=== PATIENT | male | born 1950 | race Caucasian/White ===

== ENCOUNTER 2016-11-11 19:00 | Emergency (ER) | payer BC ==
[2016-11-11 19:12] VITALS: BP 124/53; PULSE 105; TEMP 98.3; BMI 38.4
[2016-11-11] MEDS ORDERED: LIDOCAINE HCL 1%, 10 MG/ML (20ML VIAL) ONE (20:36)
[2016-11-11] MEDS ORDERED: CEPHALEXIN MONOHYDRATE 500 MG CAPSULE (UD) PO ONE (21:04)
--- NOTE | 2016-11-11 21:06 | PDOC ---
History of Present Illness - General History Source: Patient Exam Limitations: No Limitations - History of Present Illness Initial Comments: 11/11/16 21:07 The patient is a 66 year old male, with a significant past medical history of atrial fibrillation (on coumadin), who presents to the emergency department with a left mooney laceration secondary to cutting his leg on the hard plastic edge of a crate. The patient reports that the area was heavily bleeding and he was able to stop the bleeding by using pressure and duct taping the affected area. He denies any other bodily pain or injury. Allergies: Shellfish Social history: Former smoker (quit in 2003) PCP: Dr. Gordon Napoles <Vashti Castelan - Last Filed: 11/11/16 21:07> <Yin Judd - Last Filed: 11/12/16 02:00> - General Chief Complaint: Injury Stated Complaint: LEFT MOONEY LACERATION Time Seen by Provider: 11/11/16 19:14 Past History <Vashti Castelan - Last Filed: 11/11/16 21:07> - Past Medical History Anemia: No Asthma: Yes Cancer: No Cardiac Disorders: Yes (A FIB) CVA: No COPD: No CHF: No Dementia: No Diabetes: No GI Disorders: No Disorders: No HTN: No Hypercholesterolemia: Yes Liver Disease: No Seizures: No Thyroid Disease: No - Surgical History Abdominal Surgery: No Appendectomy: No Cardiac Surgery: No Cholecystectomy: No Lung Surgery: No Neurologic Surgery: No Orthopedic Surgery: No - Psycho/Social/Smoking Cessation Hx Anxiety: No Suicidal Ideation: No Smoking History: Former smoker Have you smoked in the past 12 months: No If you are a former smoker, when did you quit?: 2003 Information on smoking cessation initiated: No Hx Alcohol Use: Yes Drug/Substance Use Hx: No Substance Use Type: Alcohol Hx Substance Use Treatment: No <Yin Judd - Last Filed: 11/12/16 02:00> - Past Medical History Allergies/Adverse Reactions: Allergies Allergy/AdvReac Type Severity Reaction Status Date / Time shellfish derived Allergy Hives Verified 11/11/16 19:05 Home Medications: Ambulatory Orders Atorvastatin Ca [Lipitor] 10 mg PO DAILY 02/02/14 Digoxin [Lanoxin -] 0.25 mg PO DAILY 02/02/14 Hydrocodone Bit/Acetaminophen [Vicodin Es 7.5-300mg -] 1 tab PO Q6H PRN Metoprolol Succinate [Toprol XL -] 50 mg PO DAILY 02/02/14 Warfarin Sodium [Coumadin] 6 mg PO DAILY 02/02/14 Cephalexin Monohydrate [Keflex -] 500 mg PO Q6H #12 capsule 11/11/16 Review of Systems - Review of Systems Able to Perform ROS?: Yes Comments:: 11/11/16 21:08 CONSTITUTIONAL: Absent: fever, no chills, no fatigue EYES: Absent: visual changes ENT: Absent: ear pain, no sore throat CARDIOVASCULAR: Absent: chest pain, no palpitations RESPIRATORY: Absent: cough, no SOB GI: Absent: abdominal pain, no nausea, no vomiting, no constipation, no diarrhea GENITOURINARY: Absent: dysuria, no frequency, no hematuria MUSCULOSKELETAL: Absent: back pain, no arthralgia, no myalgia SKIN:+left skin tear Absent: rash <Vashti Castelan - Last Filed: 11/11/16 21:07> *Physical Exam - Vital Signs Last Vital Signs Temp Pulse Resp BP Pulse Ox 98.3 F 105 H 20 124/53 99 11/11/16 19:03 11/11/16 19:03 11/11/16 19:03 11/11/16 19:03 11/11/16 19:03 - Physical Exam Comments: 11/11/16 21:08 GENERAL: The patient is awake, alert, and fully oriented, in no acute distress. HEAD: Normal with no signs of trauma. EYES: Pupils equal, round and reactive to light, extraocular movements intact, sclera anicteric, conjunctiva clear with no pallor. ENT: Ears normal, nares patent, oropharynx clear without exudates. Moist mucous membranes. NECK: Normal range of motion, supple without lymphadenopathy, JVD, or masses. LUNGS: Breath sounds equal, clear to auscultation bilaterally. No wheeze/ crackles. HEART: Regular rate and rhythm, normal S1 and S2 without murmur or rub. ABDOMEN: Soft/nontender/nondistended. BS wnl. No guarding or rebound. No palpable masses. No hepatosplenomegaly. EXTREMITIES: Normal range of motion, no edema. No clubbing or cyanosis. No cords, erythema, or tenderness. NEUROLOGICAL: Cranial nerves II through XII grossly intact. Normal speech, normal gait. PSYCH: Normal mood, normal affect. SKIN: + 4 cm curvilinear skin tear of the lateral aspect of the lower 3rd of left mooney, actively bleeding capillary in the medial aspect of the wound. Warm, Dry, normal turgor, no rashes <Vashti Castelan - Last Filed: 11/11/16 21:07> - Vital Signs Last Vital Signs Temp Pulse Resp BP Pulse Ox 98.3 F 105 H 20 124/53 99 11/11/16 19:03 11/11/16 19:03 11/11/16 19:03 11/11/16 19:03 11/11/16 19:03 <Yin Judd - Last Filed: 11/12/16 02:00> Procedures - Laceration/Wound Repair Left Lower Lateral Leg Wound Length: 2.6 to 5.0 cm Wound Explored: clean Wound's Depth, Shape: flap Irrigated w/ Saline: Yes Betadine Prep: No (hibiclens/ethanol) Anesthesia: 2% Lidocaine w/ Epi Amount of Anesthetic (ccs): 1 Wound Repaired With: Dermabond Sterile Dressing Applied: Yes Splint Applied: No Sling Applied: No Progress: Area around 4 cm curvilinear skin tear prepped using Hibiclens/ethanol. 1 mL of 2% lidocaine with epinephrine injected into the area around actively bleeding capillary. Suture ligation of the bleeding blood vessel performed using transfixion suture of 5-0 Vicryl. Good hemostasis achieved. Skin flap cleansed using sterile normal saline and closed using Dermabond around the edges of the skin tear. Telfa pad plus sterile gauze plus Trev wrap applied to the wound. Patient tolerated procedure well <Yin Judd - Last Filed: 11/12/16 02:00> Progress Note - Progress Note Progress Note: Documentation has been prepared under my direction and personally reviewed by me in its entirety. I attest that this documented accurately reflects all work, treatment, procedures and medical decision making performed by me. <Yin Judd - Last Filed: 11/12/16 02:00> Medical Decision Making - Medical Decision Making As noted above, this 66-year-old man with a history of atrial fibrillation/ venous-stasis/probable peripheral vascular disease presented with skin tear of the left lower leg. Repair of the wound as noted above. Patient will keep the left leg elevated as much as possible with the original dressing in place for 2 days. Because the patient has a history of peripheral vascular disease and wound is in the lower extremity, Keflex 500 mg 4 times a day for 3 days will be prescribed with the first dose given here in the emergency room. Patient will plan to see his PMD, Dr. Napoles within the next 3 days for wound check. Meanwhile, if he notices increase in pain/swelling/redness in the wound prior to the wound check, he should return here. <iYn Judd - Last Filed: 11/12/16 02:00> *DC/Admit/Observation/Transfer - Attestations Scribe Attestion: 11/11/16 21:09 Documentation prepared by YOSHI Rivera, acting as medical center director for Yin Judd MD. <Vashti Castelan - Last Filed: 11/11/16 21:07> <Yin Judd - Last Filed: 11/12/16 02:00> Diagnosis at time of Disposition: Skin tear of left lower leg without complication Qualifiers: Encounter type: initial encounter Qualified Code(s): S81.812A - Laceration without foreign body, left lower leg, initial encounter - Discharge Dispostion Disposition: HOME Condition at time of disposition: Good - Prescriptions Prescriptions: Cephalexin Monohydrate [Keflex -] 500 mg PO Q6H #12 capsule - Referrals Referrals: Gordon Napoles MD [Primary Care Provider] - 3 days - Patient Instructions Printed Discharge Instructions: DI for Laceration Repair With Dermabond Additional Instructions: keep original dressing in place for 2 days keep left leg elevated tonight after 2 days , remove original dressing;replace with telfa/gauze wrap keflex 500mg 4 times a day for [address] Napoles for wound check within 3-4 days return to ER if area is more painful/swollen/red
[2016-11-11] MEDS ORDERED: CEPHALEXIN MONOHYDRATE 500 MG CAPSULE (UD) ONE (21:16)
== END 2016-11-11 21:20 | disposition home or self-care (01) ==
LOC: FER 19:00
PROC: 0HQLXZZ Repair Left Lower Leg Skin, External Approach (ICD-10-PCS; principal; 2016-11-11)
DX: S81.812A Laceration without foreign body, left lower leg, initial encounter (principal); W22.8XXA Striking against or struck by other objects, initial encounter; Y93.9 Activity, unspecified; Y92.9 Unspecified place or not applicable; I48.91 Unspecified atrial fibrillation; Z79.01 Long term (current) use of anticoagulants; Z87.891 Personal history of nicotine dependence; J45.909 Unspecified asthma, uncomplicated; E78.00 Pure hypercholesterolemia, unspecified
CPT/HCPCS: 99281-25

== ENCOUNTER 2020-08-24 08:34 | Emergency (ER) | payer BC ==
[2020-08-24 09:05] VITALS: TEMP 97; BMI 36.2
[2020-08-24 10:22] LABS: BASO % 0.4 % (0-2.0); HEMATOCRIT 35.7 % (35.4-49); HEMOGLOBIN 12.1 GM/dL (11.7-16.9); LYMPH % 12.6 % (8-40); MCH 28.1 pg (25.7-33.7); MCHC 33.8 g/dl (32.0-35.9); MEAN CELL VOLUME 83.3 fl (80-96); MEAN PLT VOLUME 7.3 fl (7.5-11.1); MONO % 5.1 % (3.8-10.2); NEUT % 79.9 % (42.8-82.8); PLATELET COUNT 209 K/MM3 (134-434); RBC 4.29 M/mm3 (4.00-5.60); RDW 14.1 % (11.9-15.9)
[2020-08-24 10:29] LABS: INR 2.01 (0.83-1.09); PROTHROMBIN TIME (PATIENT) 23.8 SEC (9.7-13.0)
[2020-08-24 10:32] LABS: ACTIVATED PTT 29.8 SECONDS (25.2-36.5)
[2020-08-24 10:39] VITALS: BP 110/55; PULSE 61
== END 2020-08-24 11:30 | disposition home or self-care (01) ==
LOC: JER 08:34
DX: S81.812A Laceration without foreign body, left lower leg, initial encounter (principal)
CPT/HCPCS: 36415; 85025; 85610; 85730; 99283-25

== ENCOUNTER 2022-09-25 15:12 | Inpatient (IN) | payer OTHER, MEDICARE ==
[2022-09-25] MEDS ORDERED: PANTOPRAZOLE SODIUM 40 MG VIAL IVPUSH ONE (15:42)
[2022-09-25] MEDS ORDERED: PANTOPRAZOLE SODIUM 40 MG VIAL ONE (17:07)
[2022-09-25 17:29] LABS: HEMATOCRIT 26.7 % (35.4-49); MCH 27.2 pg (25.7-33.7); MCHC 33.8 g/dl (32.0-35.9); MEAN CELL VOLUME 80.3 fl (80-96); PLATELET COUNT 256.9 10^3/uL (134-434); RBC 3.32 10^6/uL (4.00-5.60); RDW 20.9 % (11.9-15.9); WHITE BLOOD COUNT 7.1 10^3/uL (4.0-10.8)
[2022-09-25 17:38] LABS: ALBUMIN 3.4 g/dl (3.4-5.0); BILIRUBIN,TOTAL 1.4 mg/dl (0.2-1); CALCIUM 8.8 mg/dl (8.5-10); CREATININE 1.7 mg/dl (0.55-1.3); TOT PROT 6.3 g/dl (6.4-8.2)
[2022-09-25 18:24] LABS: PLATELET ESTIMATE ADEQUATE
[2022-09-25] MEDS ORDERED: SODIUM CHLORIDE 0.9% 1000 ML INFUS.BAG IV ONE (18:30)
[2022-09-25 18:47] LABS: PROTHROMBIN TIME (PATIENT) 59.6 SEC (9.7-13.0)
[2022-09-25 19:06] LABS: INR 5.1 (0.83-1.09)
[2022-09-25 19:33] LABS: N-TERMINAL BNP 490.5 pg/ml (5-125)
[2022-09-26 01:26] VITALS: BMI 38.5
[2022-09-26 08:36] LABS: INR 5.57 (0.83-1.09); PROTHROMBIN TIME (PATIENT) 65.2 SEC (9.7-13.0)
[2022-09-26 08:38] LABS: ACTIVATED PTT 47.1 SECONDS (25.2-36.5)
[2022-09-26 08:42] LABS: HEMATOCRIT 23.1 % (35.4-49); HEMOGLOBIN 7.6 G/dL (11.7-16.9); MCH 26.6 pg (25.7-33.7); MCHC 32.8 g/dl (32.0-35.9); PLATELET COUNT 228.1 10^3/uL (134-434); RBC 2.85 10^6/uL (4.00-5.60); RDW 21.3 % (11.9-15.9); WHITE BLOOD COUNT 6.4 10^3/uL (4.0-10.8)
[2022-09-26 08:44] LABS: CALCIUM 8.2 mg/dl (8.5-10); CREATININE 1.5 mg/dl (0.55-1.3); MAGNESIUM 2.1 mg/dL (1.8-2.4); PHOSPHOROUS 2.9 mg/dl (2.5-4.9)
[2022-09-26] MEDS ORDERED: DIGOXIN 0.25 MG TABLET PO SCH (10:15)
[2022-09-26] MEDS ORDERED: DIGOXIN 0.125 MG TABLET PO SCH (10:56)
[2022-09-26] MEDS: GABAPENTIN 300 MG CAPSULE PO SCH ×2 (11:35→22:14)
[2022-09-26] MEDS: ATORVASTATIN CA 10 MG TABLET (FP) PO SCH (22:14)
[2022-09-26] MEDS: PANTOPRAZOLE SODIUM 40 MG VIAL IVPUSH SCH (22:14)
[2022-09-26] MEDS ORDERED: ACETAMINOPHEN 325 MG TABLET (FP) PO PRN (22:16)
[2022-09-27 08:00] LABS: CALCIUM 8.3 mg/dl (8.5-10); CREATININE 1.5 mg/dl (0.55-1.3)
[2022-09-27] MEDS ORDERED: POTASSIUM CHLORIDE TABS 20 MEQ TABLET.ER (FP) PO ONE (09:00)
[2022-09-27] MEDS: GABAPENTIN 300 MG CAPSULE PO SCH ×2 (09:36→22:10)
[2022-09-27 09:37] LABS: BASO % 0.8 % (0-2.0); EOS % 3.7 % (0-4.5); HEMATOCRIT 23.4 % (35.4-49); HEMOGLOBIN 7.5 GM/dL (11.7-16.9); LYMPH % 20.3 % (8-40); MCH 25.9 pg (25.7-33.7); MCHC 32.2 g/dl (32.0-35.9); MEAN CELL VOLUME 80.4 fl (80-96); MEAN PLT VOLUME 6.8 fl (7.5-11.1); MONO % 8.3 % (3.8-10.2); NEUT % 66.9 % (42.8-82.8); PLATELET COUNT 249 10^3/uL (134-434); RBC 2.91 M/mm3 (4.00-5.60); RDW 22.8 % (11.9-15.9); WHITE BLOOD COUNT 5.8 K/mm3 (4.0-10.0)
[2022-09-27] MEDS: PANTOPRAZOLE SODIUM 40 MG VIAL IVPUSH SCH ×2 (09:39→22:10)
[2022-09-27] MEDS ORDERED: IRON SUCROSE INJECTION 200 MG in SODIUM CHLORIDE 100 ML IVPB ONE (10:20)
[2022-09-27 10:31] LABS: INR 5.51 (0.83-1.09); PROTHROMBIN TIME (PATIENT) 64.5 SEC (9.7-13.0)
[2022-09-27 10:52] LABS: ANISOCYTOSIS 3+; MACROCYTOSIS 0; OVALOCYTE 1+
[2022-09-27] MEDS: ATORVASTATIN CA 10 MG TABLET (FP) PO SCH (22:10)
[2022-09-28 07:47] LABS: INR 4.27 (0.83-1.09); PROTHROMBIN TIME (PATIENT) 49.8 SEC (9.7-13.0)
[2022-09-28 08:00] LABS: CALCIUM 8.3 mg/dl (8.5-10); CREATININE 1.4 mg/dl (0.55-1.3); PHOSPHOROUS 2.4 mg/dl (2.5-4.9)
[2022-09-28] MEDS ORDERED: POTASSIUM CHLORIDE TABS 20 MEQ TABLET.ER (FP) PO ONE (08:30)
[2022-09-28] MEDS ORDERED: POTASSIUM PHOSPHATE 15 MM in SODIUM CHLORIDE 250 ML IVPB ONE (08:30)
[2022-09-28] MEDS: GABAPENTIN 300 MG CAPSULE PO SCH ×2 (09:07→21:15)
[2022-09-28] MEDS: PANTOPRAZOLE SODIUM 40 MG VIAL IVPUSH SCH ×2 (09:09→21:15)
[2022-09-28] MEDS ORDERED: SODIUM CHLORIDE 0.9% 500 ML INFUS.BAG IV ONE (09:43)
[2022-09-28 10:31] LABS: BASO % 0.5 % (0-2.0); EOS % 4.2 % (0-4.5); HEMATOCRIT 23.9 % (35.4-49); HEMOGLOBIN 7.7 GM/dL (11.7-16.9); LYMPH % 20.5 % (8-40); MCH 25.8 pg (25.7-33.7); MCHC 32.4 g/dl (32.0-35.9); MEAN CELL VOLUME 79.8 fl (80-96); MEAN PLT VOLUME 6.7 fl (7.5-11.1); MONO % 7.1 % (3.8-10.2); NEUT % 67.7 % (42.8-82.8); PLATELET COUNT 266 10^3/uL (134-434); RBC 2.99 M/mm3 (4.00-5.60); RDW 22.9 % (11.9-15.9); WHITE BLOOD COUNT 5.4 K/mm3 (4.0-10.0)
[2022-09-28] MEDS: ATORVASTATIN CA 10 MG TABLET (FP) PO SCH (21:15)
[2022-09-29 07:48] LABS: CALCIUM 8.2 mg/dl (8.5-10); CREATININE 1.3 mg/dl (0.55-1.3); INR 2.56 (0.83-1.09); PHOSPHOROUS 2.5 mg/dl (2.5-4.9); PROTHROMBIN TIME (PATIENT) 29.7 SEC (9.7-13.0)
[2022-09-29] MEDS: GABAPENTIN 300 MG CAPSULE PO SCH ×2 (09:58→21:59)
[2022-09-29] MEDS: PANTOPRAZOLE SODIUM 40 MG VIAL IVPUSH SCH ×2 (09:58→22:01)
[2022-09-29 11:16] LABS: BASO % 0.5 % (0-2.0); EOS % 4.5 % (0-4.5); HEMATOCRIT 23.7 % (35.4-49); HEMOGLOBIN 7.7 GM/dL (11.7-16.9); LYMPH % 22.8 % (8-40); MCHC 32.5 g/dl (32.0-35.9); MEAN PLT VOLUME 6.8 fl (7.5-11.1); MONO % 7.1 % (3.8-10.2); NEUT % 65.1 % (42.8-82.8); PLATELET COUNT 255 10^3/uL (134-434); RBC 2.97 M/mm3 (4.00-5.60); RDW 23.1 % (11.9-15.9); WHITE BLOOD COUNT 5.7 K/mm3 (4.0-10.0)
[2022-09-29] MEDS ORDERED: SODIUM CHLORIDE 0.9% 500 ML INFUS.BAG IV ONE (17:33)
[2022-09-29] MEDS: ATORVASTATIN CA 10 MG TABLET (FP) PO SCH (21:59)
[2022-09-30] MEDS ORDERED: GABAPENTIN 300 MG CAPSULE PO SCH (08:42)
[2022-09-30 09:15] LABS: INR 2.02 (0.83-1.09); PROTHROMBIN TIME (PATIENT) 23.4 SEC (9.7-13.0)
[2022-09-30 09:25] LABS: CALCIUM 8.1 mg/dl (8.5-10); CREATININE 1.3 mg/dl (0.55-1.3); PHOSPHOROUS 3.2 mg/dl (2.5-4.9)
[2022-09-30] MEDS: FERROUS SO4 325 MG TABLET (FP) PO SCH (10:04)
[2022-09-30] MEDS: PANTOPRAZOLE SODIUM 40 MG VIAL IVPUSH SCH (10:04)
[2022-09-30] MEDS: POLYETHYLENE GLYCOL (HEALTHYLAX) 3350 17 GM PACKET PO SCH (10:07)
[2022-09-30] MEDS ORDERED: SODIUM CHLORIDE 0.9% 500 ML INFUS.BAG IV ONE (11:03)
[2022-09-30] MEDS ORDERED: SODIUM CHLORIDE 1,000 ML IV SCH (11:15)
[2022-09-30 11:24] LABS: BASO % 0.7 % (0-2.0); HEMATOCRIT 23.1 % (35.4-49); HEMOGLOBIN 7.4 GM/dL (11.7-16.9); LYMPH % 21.9 % (8-40); MCHC 32.1 g/dl (32.0-35.9); MEAN CELL VOLUME 81.1 fl (80-96); MEAN PLT VOLUME 6.8 fl (7.5-11.1); MONO % 6.8 % (3.8-10.2); NEUT % 65.6 % (42.8-82.8); PLATELET COUNT 251 10^3/uL (134-434); RBC 2.84 M/mm3 (4.00-5.60); RDW 22.2 % (11.9-15.9); WHITE BLOOD COUNT 5.3 K/mm3 (4.0-10.0)
[2022-09-30 18:44] VITALS: RESP 18
[2022-09-30] MEDS: ATORVASTATIN CA 10 MG TABLET (FP) PO SCH (21:39)
[2022-09-30] MEDS: GABAPENTIN 100 MG CAPSULE PO SCH (21:39)
[2022-10-01 09:17] LABS: INR 1.68 (0.83-1.09); PROTHROMBIN TIME (PATIENT) 19.4 SEC (9.7-13.0)
[2022-10-01 09:35] LABS: ALBUMIN 2.7 g/dl (3.4-5.0); BILIRUBIN,TOTAL 0.9 mg/dl (0.2-1); CALCIUM 8.3 mg/dl (8.5-10); CREATININE 1.3 mg/dl (0.55-1.3); MAGNESIUM 1.9 mg/dL (1.8-2.4); PHOSPHOROUS 2.7 mg/dl (2.5-4.9); TOT PROT 5.1 g/dl (6.4-8.2)
[2022-10-01] MEDS ORDERED: PANTOPRAZOLE 40 MG TABLET PO SCH (10:00)
[2022-10-01 10:08] LABS: HEMATOCRIT 25.3 % (35.4-49); HEMOGLOBIN 8.4 G/dL (11.7-16.9); MCH 27.3 pg (25.7-33.7); MEAN CELL VOLUME 82.7 fl (80-96); PLATELET COUNT 233.9 10^3/uL (134-434); RBC 3.06 10^6/uL (4.00-5.60); RDW 20.8 % (11.9-15.9); WHITE BLOOD COUNT 5.6 10^3/uL (4.0-10.8)
[2022-10-01] MEDS: POLYETHYLENE GLYCOL (HEALTHYLAX) 3350 17 GM PACKET PO SCH (11:17)
[2022-10-01] MEDS: FERROUS SO4 325 MG TABLET (FP) PO SCH (11:17)
[2022-10-01] MEDS: GABAPENTIN 100 MG CAPSULE PO SCH (11:17)
[2022-10-01 11:30] VITALS: TEMP 98.8
[2022-10-01 12:46] LABS: PLATELET ESTIMATE ADEQUATE
[2022-10-01 16:33] VITALS: BP 106/44; PULSE 53
[2022-10-01] MEDS ORDERED: RIVAROXABAN 20 MG TABLET PO SCH (18:00)
== END 2022-10-01 19:32 | disposition home or self-care (01) | DRG 813 ==
LOC: FER 15:12 → FM/S 20:38
PROVIDERS: ADMIT Internal Medicine; ATTEND Internal Medicine
DX: D68.32 Hemorrhagic disorder due to extrinsic circulating anticoagulants (principal); K92.2 Gastrointestinal hemorrhage, unspecified; N17.9 Acute kidney failure, unspecified; D62 Acute posthemorrhagic anemia; I48.91 Unspecified atrial fibrillation; R00.1 Bradycardia, unspecified; R29.6 Repeated falls; E78.5 Hyperlipidemia, unspecified; E80.6 Other disorders of bilirubin metabolism; E86.1 Hypovolemia; D64.9 Anemia, unspecified; I11.0 Hypertensive heart disease with heart failure; I50.9 Heart failure, unspecified; I95.1 Orthostatic hypotension; G62.9 Polyneuropathy, unspecified; Z79.01 Long term (current) use of anticoagulants
CPT/HCPCS: 36415; 36430; 70450-TC; 71045-TC-FY; 72125-TC; 80048; 80053; 80061; 80162; 82272; 82607; 82728; 82746; 83036; 83540; 83550; 83735; 83880; 84100; 84439; 84443; 84484; 85025; 85027; 85610; 85730; 86850; 86900; 86901; 86922; 93005; 93306-TC; 97116-GP; 97162-GP; 99285-25; C9803-CS; J1756; P9058; U0003; U0005

== ENCOUNTER 2024-08-14 18:59 | Inpatient (IN) | payer OTHER, MEDICARE ==
[2024-08-14 19:59] LABS: VENOUS O2 SATURATION 90.9 % (70-80); VENOUS PCO2 68.4 mmHg (38-52)
[2024-08-14 20:04] LABS: VENOUS PH 6.838 (7.310-7.410)
[2024-08-14 20:07] LABS: BASO % 0.3 % (0-2.0); EOS % 0.8 % (0-4.5); HEMATOCRIT 13.6 % (35.4-49); LYMPH % 14.9 % (8-40); MCH 26.5 pg (25.7-33.7); MCHC 30.4 g/dl (32.0-35.9); MEAN CELL VOLUME 87.3 fl (80-96); MEAN PLT VOLUME 7.9 fl (7.5-11.1); MONO % 9.6 % (3.8-10.2); NEUT % 74.4 % (42.8-82.8); PLATELET COUNT 212 10^3/uL (134-434); RBC 1.55 M/mm3 (4.00-5.60); RDW 16.2 % (11.9-15.9); WHITE BLOOD COUNT 10.2 K/mm3 (4.0-10.0)
[2024-08-14 20:14] LABS: CHLORIDE 97 mmol/L (98-107); POTASSIUM 4.9 mmol/L (3.5-5.1); SODIUM 131 mmol/L (136-145)
[2024-08-14 20:15] LABS: ALBUMIN 2.7 g/dl (3.4-5.0); ANION GAP 23 mmol/L (4-13); CALCIUM 8.9 mg/dL (8.5-10.1); CO2 12 mmol/L (21-32)
[2024-08-14 20:16] LABS: HEMOGLOBIN 4.1 GM/dL (11.7-16.9)
[2024-08-14 20:17] LABS: BLOOD UREA NITROGEN 53.1 mg/dL (7-18); GLUCOSE,RANDOM 136 mg/dL (74-106); MAGNESIUM 2.6 mg/dL (1.8-2.4)
[2024-08-14 20:19] LABS: CREATININE 3.8 mg/dL (0.55-1.3); SGOT/AST 292 U/L (15-37); SGPT/ALT 154 U/L (13-61)
[2024-08-14 20:21] LABS: BILIRUBIN,TOTAL 0.7 mg/dL (0.2-1); TOT PROT 4.7 g/dl (6.4-8.2)
[2024-08-14 20:22] LABS: ALK PHOS 75 U/L (45-117)
[2024-08-14] MEDS ORDERED: PROTAMINE SULFATE 50 MG/5 ML VIAL IVPUSH ONE (20:26)
[2024-08-14] MEDS ORDERED: DEXMEDETOMIDINE HCL 200 MCG/2 ML IVPB ONE ×3 (20:40→21:54)
[2024-08-14] MEDS: NOREPINEPHRINE 0.9 % NACL 8 MG/250 ML BAG IVPB SCH (22:13)
[2024-08-14] MEDS: EPINEPHrine 1:10,000 (P-F SYR) 1 MG/10 ML DISP.SYRIN IVPUSH ONE (22:13)
[2024-08-14] MEDS: SODIUM CHLORIDE 1,000 ML IV STA (22:13)
[2024-08-14] MEDS: DEXMEDETOMIDINE PREMIX 400 MCG/100 ML BAG IVPB SCH (22:14)
[2024-08-14] MEDS ORDERED: PIPERACILLIN/TAZOB 4.5 GM 4.5 GM/100 ML BAG IVPB ONE (22:19)
[2024-08-14] MEDS ORDERED: VANCOMYCIN 1 GM PREMIX (F) 1 GM/200 ML BAG ONE (22:35)
[2024-08-14] MEDS: VANCOMYCIN 1,000 MG in DEXTROSE 5%-WATER - 250 ML IVPB ONE (22:44)
[2024-08-14] MEDS: PIPERACILLIN/TAZOB 4.5 GM 4.5 GM in DEXTROSE 5%-WATER 100 ML IVPB ONE (22:44)
[2024-08-14] MEDS: PROTAMINE SULFATE 50 MG/5 ML VIAL IVPUSH ONE (23:03)
[2024-08-14] MEDS ORDERED: ROCURONIUM BROMIDE 50 MG/5 ML VIAL ONE (23:48)
[2024-08-14] MEDS ORDERED: MIDAZOLAM HCL 2 MG/2 ML SINGLE DOSE VIAL ONE (23:52)
[2024-08-15] MEDS: MIDAZOLAM HCL 2 MG/2 ML SINGLE DOSE VIAL IVPUSH ONE (01:24)
[2024-08-15] MEDS: ROCURONIUM BROMIDE 50 MG/5 ML VIAL IV ONE (01:24)
[2024-08-15] MEDS: SODIUM BICARBONATE 8.4% 50 MEQ/50 ML DISP.SYRIN IVPUSH ONE ×2 (01:25→02:54)
[2024-08-15] MEDS: PANTOPRAZOLE SODIUM 40 MG VIAL IVPUSH SCH (01:25)
[2024-08-15] MEDS ORDERED: VASopressin 20 UNITS/ML VIAL IV ONE (01:34)
[2024-08-15] MEDS: VASopressin 40 UNITS/100 ML BAG IV SCH (01:40)
[2024-08-15 01:47] LABS: HEMATOCRIT 18.5 % (35.4-49); MCH 27.8 pg (25.7-33.7); MCHC 31.9 g/dl (32.0-35.9); MEAN CELL VOLUME 87.2 fl (80-96); MEAN PLT VOLUME 7.3 fl (7.5-11.1); PLATELET COUNT 222 10^3/uL (134-434); RBC 2.12 M/mm3 (4.00-5.60); RDW 16.3 % (11.9-15.9); WHITE BLOOD COUNT 16.3 K/mm3 (4.0-10.0)
[2024-08-15 02:22] LABS: CALCIUM 7.9 mg/dL (8.5-10.1); HEMOGLOBIN 5.9 GM/dL (11.7-16.9)
[2024-08-15 02:23] LABS: ALBUMIN 2.5 g/dl (3.4-5.0); BLOOD UREA NITROGEN 53.4 mg/dL (7-18)
[2024-08-15 02:26] LABS: LACTIC ACID 11.8 mmol/L (0.4-2.0)
[2024-08-15 02:27] LABS: CREATININE 3.6 mg/dL (0.55-1.3)
[2024-08-15 02:29] LABS: TOT PROT 4.4 g/dl (6.4-8.2)
[2024-08-15 02:31] LABS: ARTERIAL BLD GAS O2 SATURATION 98.1 % (95-98); ARTERIAL BLOOD GAS BASE EXCESS -17.4 mmol/L (-2-2); ARTERIAL BLOOD GAS PO2 153.6 mmHg (80-100)
[2024-08-15 02:39] LABS: ARTERIAL BLOOD GAS pH 7.076 (7.350-7.450); INR 1.36 (0.83-1.09); PROTHROMBIN TIME (PATIENT) 15.5 SEC (9.7-13.0)
[2024-08-15 02:42] LABS: ACTIVATED PTT 51.3 SECONDS (25.2-36.5)
[2024-08-15 03:59] VITALS: BMI 38.7
[2024-08-15 05:41] LABS: BASO % 0.5 % (0-2.0); EOS % 0.2 % (0-4.5); HEMATOCRIT 23.1 % (35.4-49); HEMOGLOBIN 7.3 GM/dL (11.7-16.9); LYMPH % 6.2 % (8-40); MCH 26.3 pg (25.7-33.7); MCHC 31.7 g/dl (32.0-35.9); MEAN CELL VOLUME 83.2 fl (80-96); MONO % 2.9 % (3.8-10.2); NEUT % 90.2 % (42.8-82.8); PLATELET COUNT 154 10^3/uL (134-434); RBC 2.78 M/mm3 (4.00-5.60); RDW 18.4 % (11.9-15.9); WHITE BLOOD COUNT 16.3 K/mm3 (4.0-10.0)
[2024-08-15] MEDS: DEXMEDETOMIDINE PREMIX 400 MCG/100 ML BAG IVPB SCH (06:31)
[2024-08-15] MEDS: MIDAZOLAM HCL 2 MG/2 ML SINGLE DOSE VIAL IVPUSH PRN (06:34)
[2024-08-15 07:47] LABS: LACTIC ACID 7.9 mmol/L (0.4-2.0)
[2024-08-15 07:56] LABS: POTASSIUM 4.8 mmol/L (3.5-5.1)
[2024-08-15 07:58] LABS: ALBUMIN 2.9 g/dl (3.4-5.0); BLOOD UREA NITROGEN 53.4 mg/dL (7-18)
[2024-08-15 08:02] LABS: CREATININE 3.7 mg/dL (0.55-1.3)
[2024-08-15 08:03] LABS: BILIRUBIN,TOTAL 1.7 mg/dL (0.2-1)
[2024-08-15] MEDS: PIPERACILLIN/TAZOB 3.375 GM 50 ML IVPB ONE (09:25)
[2024-08-15] MEDS ORDERED: LORazepam 40 MG in DEXTROSE 5%-WATER - 230 ML IVPB SCH (09:30)
[2024-08-15 09:38] LABS: HEMATOCRIT 22.8 % (35.4-49); HEMOGLOBIN 7.4 GM/dL (11.7-16.9); MCH 26.5 pg (25.7-33.7); MCHC 32.6 g/dl (32.0-35.9); MEAN CELL VOLUME 81.3 fl (80-96); PLATELET COUNT 173 10^3/uL (134-434); RDW 18.4 % (11.9-15.9); WHITE BLOOD COUNT 19.4 K/mm3 (4.0-10.0)
[2024-08-15 09:48] LABS: INR 1.4 (0.83-1.09); PROTHROMBIN TIME (PATIENT) 15.9 SEC (9.7-13.0)
[2024-08-15] MEDS ORDERED: PIPERACILLIN/TAZOB 3.375 GM 3.375 GM in DEXTROSE 5%-WATER - 50 ML IVPB SCH (10:00)
[2024-08-15] MEDS: LORazepam 40 MG in DEXTROSE 5%-WATER - 230 ML IVPB SCH (10:02)
[2024-08-15] MEDS: LORazepam 2 MG/ML SDV VIAL IVPUSH ONE (10:04)
[2024-08-15] MEDS: MUPIROCIN 2% TOPICAL OINTMENT FOR DECOLONIZATION NS SCH (10:04)
[2024-08-15 10:38] LABS: ANISOCYTOSIS 1+; LACTIC ACID 7.2 mmol/L (0.4-2.0)
[2024-08-15] MEDS: MORPHINE 100mg/NS INFUSION 100 MG/100 ML MG IVPB SCH (11:37)
[2024-08-15] MEDS ORDERED: morphine SULFATE 4 MG/ML VIAL IVPUSH ONE (11:40)
[2024-08-15] MEDS ORDERED: LORazepam 2 MG/ML SDV VIAL IVPUSH ONE (11:40)
[2024-08-15 15:43] VITALS: RESP 16
[2024-08-15] MEDS: morphine SULFATE 4 MG/ML VIAL IVPUSH ONE (17:04)
[2024-08-15 17:36] VITALS: BP 65/42; PULSE 132; TEMP 100.6
[2024-08-15] MEDS ORDERED: CHLORHEXIDINE GLUCONATE 4% CLEANSER FOR DECOLONIZATION TP SCH (22:00)
== END 2024-08-15 21:22 | disposition expired | DRG 393 ==
LOC: JER 18:59 → JICU 22:54
PROVIDERS: ADMIT Internal Medicine Pulmonary Disease; ATTEND Internal Medicine Pulmonary Disease
PROC: 30233N1 Transfusion of Nonautologous Red Blood Cells into Peripheral Vein, Percutaneous Approach (ICD-10-PCS; 2024-08-14)
PROC: 30233R1 Transfusion of Nonautologous Platelets into Peripheral Vein, Percutaneous Approach (ICD-10-PCS; 2024-08-14)
PROC: 5A1935Z Respiratory Ventilation, Less than 24 Consecutive Hours (ICD-10-PCS; 2024-08-14)
PROC: 06HM33Z Insertion of Infusion Device into Right Femoral Vein, Percutaneous Approach (ICD-10-PCS; principal; 2024-08-15)
PROC: B54BZZA Ultrasonography of Right Lower Extremity Veins, Guidance (ICD-10-PCS; 2024-08-15)
PROC: 4A133B1 Monitoring of Arterial Pressure, Peripheral, Percutaneous Approach (ICD-10-PCS; 2024-08-15)
PROC: 4A133J1 Monitoring of Arterial Pulse, Peripheral, Percutaneous Approach (ICD-10-PCS; 2024-08-15)
PROC: 30233K1 Transfusion of Nonautologous Frozen Plasma into Peripheral Vein, Percutaneous Approach (ICD-10-PCS; 2024-08-15)
DX: K66.1 Hemoperitoneum (principal); G93.6 Cerebral edema; J96.01 Acute respiratory failure with hypoxia; C18.9 Malignant neoplasm of colon, unspecified; G93.1 Anoxic brain damage, not elsewhere classified; E87.20 Acidosis, unspecified; D62 Acute posthemorrhagic anemia; N17.9 Acute kidney failure, unspecified; K92.2 Gastrointestinal hemorrhage, unspecified; R57.8 Other shock; K76.89 Other specified diseases of liver; I87.8 Other specified disorders of veins; I46.9 Cardiac arrest, cause unspecified; I48.91 Unspecified atrial fibrillation; E78.00 Pure hypercholesterolemia, unspecified; I11.0 Hypertensive heart disease with heart failure; I50.9 Heart failure, unspecified; Z85.038 Personal history of other malignant neoplasm of large intestine
CPT/HCPCS: 0241U-QW; 36415; 36430; 36511; 36516; 36600; 70450-TC; 71045-TC-FY; 71275-TC; 72125-TC; 74174-TC; 80053; 82272; 82803; 82962; 83605; 83735; 84484; 85025; 85027; 85610; 85730; 86316; 86922; 87040; 93005; 93010; 94002; 99291; J2597; J3490; P9017; P9037; P9058; Q9967